=== PATIENT | female | born 1995 | race Caucasian/White ===

== ENCOUNTER 2016-09-01 13:29 | Emergency (ER) | payer OTHER ==
[~2016-09-01] VITALS: Ht 162.6 cm; Wt 68.5 kg
[2016-09-01 13:49] VITALS: BP 130/80
[2016-09-01] MEDS ORDERED: PRENATAL1 TA1 PO (13:54)
--- NOTE | 2016-09-01 16:16 | NUR ---
Patient ambulated to bed 6. RN evaluating patient at bedside.
--- NOTE | 2016-09-01 16:17 | NUR ---
DR DOMINGUEZ ASSESSING THE PT AT BEDSIDE
--- NOTE | 2016-09-01 16:45 | NUR ---
Dr. Garza evaluating patient at bedside.
--- NOTE | 2016-09-01 17:00 | NUR ---
21/F BIB TO ED C/O SPOTTING WHEN WIPES LAST NIGHT AND THIS AM. DENIES CRAMPING, N/V, CHAVES. PT STS 16 WKS . G3 T0 L1. SKIN IS PINK/WARM/DRY; AAOX4 WITH EVEN AND STEADY GAIT; LUNGS CLEAR BL; HR EVEN AND REGULAR; PT DENIES ANY FEVER, CP, SOB, OR COUGH AT THIS TIME; PATIENT STATES PAIN OF 0/10 AT THIS TIME; VSS; PATIENT POSITIONED FOR COMFORT; HOB ELEVATED; BEDRAILS UP X2; BED DOWN. ER MD MADE AWARE OF PT STATUS.
--- NOTE | 2016-09-01 18:00 | NUR ---
IV NOT ESTABLISH PER DR DOMINGUEZ
[2016-09-01 18:20] VITALS: BP 130/80
== END 2016-09-01 18:20 | disposition home or self-care (01) ==
LOC: MED 13:29
PROC: BY4CZZZ Ultrasonography of Second Trimester, Single Fetus (ICD-10-PCS; principal; 2016-09-01)
DX: O20.0 Threatened abortion (principal); O46.8X2 Other antepartum hemorrhage, second trimester; Z3A.16 16 weeks gestation of pregnancy
CPT/HCPCS: 36415; 76805; 80053; 81001; 81025; 82150; 84702; 85025; 86900; 86901; 99285; Q0092